=== PATIENT | male | born 1995 | race Caucasian/White ===

== ENCOUNTER 2017-05-09 23:46 | Emergency (ER) | payer OTHER ==
[2017-05-09 23:57] VITALS: RESP 16; O2SAT 95
[2017-05-10] MEDS ORDERED: FLUORESCEIN SODIUM 1 MG STRIP OP ONE (00:13)
[2017-05-10] MEDS ORDERED: PROPARACAINE 0.5% 15 ML OPHT DROP OP ONE (00:13)
--- NOTE | 2017-05-10 00:17 | EDPHY ---
H & P Time Seen by Provider: 05/10/17 00:01 HPI/ROS: CHIEF COMPLAINT: "Possible pinkeye" left eye HISTORY OF PRESENT ILLNESS: 21-year-old immunocompetent male with no corrective lens use history, complaining of atraumatic left eye discharge, swelling for the past 3-4 hours. 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 No fever or chills. No photophobia. No pain with extraocular movements. No facial crepitus. No otalgia.No exposure to high speed projectiles. PHYSICAL EXAM (Prior to examination, patient consented to physical exam, hands were washed and my usual and customary physical exam procedures followed) 1) GENERAL: Well-developed, well-nourished, alert and oriented. Appears to be in no acute distress. 2) HEAD: Normocephalic 3) ENT: nasopharynx oropharynx clear no lesions. Bilateral ears clear no evidence of otitis media or otitis externa, nonbulging non erythematous tympanic membranes no otorrhea. 4) LUNGS: Breathing comfortably. 5) SKIN: facial skin unremarkable with no periorbital erythema, no induration , no facial vesicles. 6) OCULAR EXAM: Visual Acuity: noted from Nurse's notes. Pupils:equal round and reactive to light EOMI Lids: no edema or swelling, upper and lower lids were everted and no foreign bodies were visualized, no areas of increased fluorescein uptake. Skin: no proptosis, no periorbital erythema or swelling, no vesicles, no crepitus, no pain with extraocular movements. Conjunctivae: not injected, no discharge, negative Rock test. Cornea: exam with fluorescein shows no areas of increased uptake, no ulceration , no abrasion, no dendrites Anterior chamber:normal, no hyphema or hypopyon Smoking Status: Current some day smoker Constitutional: Initial Vital Signs Temperature (C) 36.9 C 05/09/17 23:53 Heart Rate 90 05/09/17 23:53 Respiratory Rate 16 05/09/17 23:53 Blood Pressure 124/70 H 05/09/17 23:53 O2 Sat (%) 95 05/09/17 23:53 Allergies/Adverse Reactions: No Known Allergies Allergy (Unverified 11/07/09 13:23) Home Medications: Medication Instructions Recorded NK [No Known Home Meds] 05/09/17 MDM/Departure - MDM Medications Given: Discontinued Medications Fluorescein Sodium (Ejrxm-H-Bmepe) 1 mg OP EDNOW ONE Stop: 05/10/17 00:14 Last Admin: 05/10/17 00:25 Dose: 1 mg Ofloxacin (Ocuflox 0.3% Opht Drops Prepack) 1 btl TAKEHOME EDNOW ONE Stop: 05/10/17 00:19 Last Admin: 05/10/17 00:26 Dose: 1 btl Proparacaine HCl (Alcaine 0.5%) 1 drops OP EDNOW ONE Stop: 05/10/17 00:14 Last Admin: 05/10/17 00:25 Dose: 1 drop ED Course/Re-evaluation: Re-evaluation with serial exams. I think his symptoms are more than likely secondary to acute conjunctivitis. Doubt orbital cellulitis. Doubt periorbital cellulitis. I Do not think that imaging studies currently indicated. Plan will be ophthalmic antibiotics and follow up with Ophthalmology. Usual and customary ophthalmological precautions instructions provided.Care and management in consultation with secondary supervising physician Dr Blue . - Depart Disposition: Home, Routine, Self-Care Clinical Impression: Conjunctivitis, left eye Qualifiers: Conjunctivitis type: acute Acute conjunctivitis type: bacterial Qualified Code( s): H10.32 - Unspecified acute conjunctivitis, left eye Condition: Good Instructions: Ofloxacin (Into the eye), Conjunctivitis (ED) Additional Instructions: Return to the emergency department immediately if you develop pain with eye movements, or any other symptoms that concern you. Referrals: Brain Jiménez MD [Medical Doctor] - 1-2 days without fail
[2017-05-10] MEDS ORDERED: OFLOXACIN 0.3% SOLN PREPACK OPHT.BTL TAKEHOME ONE (00:18)
[2017-05-10 00:54] VITALS: BP 126/72; PULSE 85; TEMP 98.8
== END 2017-05-10 00:50 | disposition home or self-care (01) ==
DX: H10.32 Unspecified acute conjunctivitis, left eye (principal); F17.200 Nicotine dependence, unspecified, uncomplicated